=== PATIENT | female | born 1975 | race Hispanic/Latino ===

== ENCOUNTER 2017-08-09 17:56 | Emergency (ER) | payer BC ==
[2017-08-09 19:02] VITALS: BP 139/94; PULSE 93; RESP 16; TEMP 97.9; O2SAT 99
[2017-08-09] MEDS ORDERED: Sodium Chloride 0.9% 1,000 ML IV STA (20:42)
[2017-08-09] MEDS ORDERED: Iohexol 240 (50 ml) PO ONE (20:43)
--- NOTE | 2017-08-09 20:45 | ED PDOC ---
HPI: Abdomen Time Seen by Provider: 08/09/17 20:07 Chief Complaint (Nursing): Abdominal Pain Chief Complaint (Provider): abdominal pain History Per: Patient History/Exam Limitations: no limitations Onset/Duration Of Symptoms: Hrs (8) Current Symptoms Are (Timing): Still Present Location Of Pain/Discomfort: RLQ, Periumbilical Quality Of Discomfort: Sharp Last Bowel Movement: Today Additional History Per: Patient Additional Complaint(s): 42 y/o female presents with right-sided abdominal pain x 8 hours. Associated multiple episodes of nonbloody diarrhea, nonbilious vomiting. Denies fever, chest pain, shortness of breath, palpitations, urinary symptoms, recent travel, sick contacts. Past Medical History Reviewed: Historical Data, Nursing Documentation, Vital Signs Vital Signs: Last Vital Signs Temp 97.9 F 08/09/17 18:59 Pulse 93 H 08/09/17 18:59 Resp 16 08/09/17 18:59 BP 139/94 H 08/09/17 18:59 Pulse Ox 99 08/10/17 00:33 - Medical History PMH: Back Problems, Migraine - Surgical History Surgical History: Cholecystectomy, Other surgeries: gastric sleeve, hysterectomy - Family History Family History: States: Unknown Family Hx - Home Medications Home Medications: Ambulatory Orders Medication Instructions Recorded Metaxalone [Skelaxin] 800 mg PO Q8H PRN #15 tab 05/15/15 oxyCODONE/Acetaminophen [Percocet 1 ea PO Q6H PRN #12 tab 05/15/15 5/325 mg Tab] Ondansetron ODT [Zofran ODT] 8 mg PO Q8 PRN #10 odt 07/28/15 Ciprofloxacin HCl [Cipro] 500 mg PO BID #6 tablet 11/19/15 Dicyclomine [Bentyl] 20 mg PO QID PRN #10 tab 11/19/15 Ibuprofen [Motrin] 600 mg PO Q6H PRN #10 tab 01/28/16 Dicyclomine [Bentyl] 20 mg PO TID PRN #15 tab 08/10/17 Ondansetron ODT [Zofran ODT] 4 mg PO Q8 PRN #10 odt 08/10/17 - Allergies Allergies/Adverse Reactions: Allergies Allergy/AdvReac Type Severity Reaction Status Date / Time Penicillins Allergy RASH Verified 01/27/16 22:39 Review of Systems ROS Statement: Except As Marked, All Systems Reviewed And Found Negative Gastrointestinal: Positive for: Nausea, Vomiting, Abdominal Pain, Diarrhea Physical Exam - Reviewed Nursing Documentation Reviewed: Yes Vital Signs Reviewed: Yes - Physical Exam Appears: Positive for: Well, Non-toxic, No Acute Distress Head Exam: Positive for: ATRAUMATIC, NORMAL INSPECTION, NORMOCEPHALIC Skin: Positive for: Normal Color Eye Exam: Positive for: Normal appearance ENT: Positive for: Normal ENT Inspection Cardiovascular/Chest: Positive for: Regular Rate, Rhythm Respiratory: Positive for: Normal Breath Sounds Gastrointestinal/Abdominal: Positive for: Bowel Sounds, Soft, Tenderness (RLQ, suprapubic, periumbilical. Neg obturator's, neg psoas. ) Back: Positive for: Normal Inspection Extremity: Positive for: Normal ROM Neurologic/Psych: Positive for: Alert, Oriented - Laboratory Results Result Diagrams: 08/09/17 21:07 08/09/17 21:07 - ECG O2 Sat by Pulse Oximetry: 99 - Progress ED Course And Treament: labs, urine, CT abd/pelvis, IV fluids, IV zofran, IV toradol EXAM: CT Abdomen and Pelvis With Intravenous Contrast CLINICAL HISTORY: 42 years old, female; Pain and signs and symptoms; Vomiting and other: Diarrhea ; Abdominal pain; Localized; Right; Prior surgery; Surgery date: 6+ months; Surgery type: Gb removed. . Gastric sleeve. Hysterectomy; Additional info: Abd pain, vomiting, diarrhea. TECHNIQUE: Axial computed tomography images of the abdomen and pelvis with intravenous contrast. All CT scans at this facility use one or more dose reduction techniques, viz.: automated exposure control; ma/kV adjustment per patient size (including targeted exams where dose is matched to indication; i.e. head); or iterative reconstruction technique. Coronal and sagittal reformatted images were created and reviewed. CONTRAST: 95 mL of administered intravenously. COMPARISON: CT - ABD PELVIS PO IV CONTRAST 2015-11-19 20:18 FINDINGS: Lower thorax: Small hiatal hernia. Mild mural thickening vs underdistention of distal esophagus. ABDOMEN: Liver: Fatty infiltration. Gallbladder and bile ducts: Cholecystectomy. No significant ductal dilation. Pancreas: No ductal dilation. No mass. Spleen: No splenomegaly. Adrenals: No mass. Kidneys and ureters: Punctate calculus within LEFT kidney. Too small to characterize lesion within LEFT kidney. No hydronephrosis. Stomach and bowel: Postsurgical changes of stomach. Few scattered diverticula within colon. No associated inflammatory stranding. Probable underdistention of LEFT colon. No definite mural thickening. No obstruction. Appendix: Normal caliber. No inflammation. PELVIS: Bladder: Unremarkable. Reproductive: Hysterectomy. ABDOMEN and PELVIS: Intraperitoneal space: No significant fluid collection. No free air. Bones/joints: Early degenerative changes of thoracic spine. Mild degenerative changes of hip joints. No acute fracture. Soft tissues: Tiny umbilical hernia containing fat. Vasculature: Circumaortic LEFT renal vein. Minimal atherosclerotic disease of aorta. No aneurysm. Lymph nodes: No pathologically enlarged lymph nodes. IMPRESSION: 1. Diverticulosis without definite CT evidence of diverticulitis. 2. Incidental/non-acute findings are described above. On re-eval, patient resting comfortably; tolerating PO. patient educated on findings, discharged with rx Zofran, Bentyl. Advised fluids. Jess[place] diet. Follow up PMD 2-3 days. Return precautions given. Disposition - Clinical Impression Clinical Impression: Gastroenteritis - Patient ED Disposition Is Patient to be Admitted: No Counseled Patient/Family Regarding: Studies Performed, Diagnosis, Need For Followup, Rx Given - Disposition Disposition Time: 00:44 Condition: IMPROVED Prescriptions: Dicyclomine [Bentyl] 20 mg PO TID PRN #15 tab PRN Reason: Pain, Mild (1-3) Ondansetron ODT [Zofran ODT] 4 mg PO Q8 PRN #10 odt PRN Reason: Nausea/Vomiting Instructions: Gastroenteritis (ED) Forms: [email or web address] (Japanese), [facility] ED School/Work Excuse
[2017-08-09 21:17] LABS: BASO # 0.1 K/uL (0.0-0.2); BASO % 1.1 % (0.0-2.0); EOS # 0.1 K/uL (0.0-0.7); EOS % 2.7 % (0.0-4.0); HEMOGLOBIN 11.8 g/dL (12.0-16.0); LYMPH # 2.5 K/uL (1.0-4.3); LYMPH % 48.7 % (20.0-40.0); MEAN CELL VOLUME 87.7 fl (81.0-99.0); MEAN CORPUSCULAR HEMOGLOBIN 28.2 pg (27.0-31.0); MEAN CORPUSCULAR HGB CONC 32.2 g/dL (33.0-37.0); MEAN PLATELET VOLUME 8.4 fl (7.2-11.7); MONO # 0.3 K/uL (0.0-0.8); MONO % 5.8 % (0.0-10.0); NEUT # 2.2 K/uL (1.8-7.0); NEUT % 41.7 % (50.0-75.0); NRBC % 0.4 % (0.0-0.0); RBC 4.17 Mil/uL (3.80-5.20); RED CELL DISTRIBUTION WIDTH 13.9 % (11.5-14.5); WHITE BLOOD COUNT 5.2 K/uL (4.8-10.8)
[2017-08-09] MEDS ORDERED: Iohexol 240 (50 ml) ONE (21:24)
[2017-08-09 21:30] LABS: ALB/GLOB RATIO 1.2 (1.0-2.1); ALT/SGPT 39 U/L (9-52); AST/SGOT 28 U/L (14-36); BLOOD UREA NITROGEN 15 mg/dl (7-17); CALCIUM 9.6 mg/dL (8.4-10.2); GFR AFRICAN-AMERICAN > 60; GFR NON-AFRICAN AMERICAN > 60; LIPASE 81 U/L (23-300)
[2017-08-09 21:34] LABS: SQUAMOUS EPITHIAL 1 /hpf (0-5); URINE BACTERIA RARE (<OCC); URINE BILIRUBIN NEGATIVE (NEGATIVE); URINE BLOOD NEGATIVE (NEGATIVE); URINE CLARITY SLIGHTY-CLOUDY (Clear); URINE COLOR YELLOW (YELLOW); URINE GLUCOSE (UA) NEG (Normal); URINE LEUKOCYTE ESTERASE NEG Leu/uL (Negative); URINE NITRATE NEGATIVE (NEGATIVE); URINE PROTEIN NEGATIVE (NEGATIVE); URINE UROBILINOGEN 0.2-1.0 mg/dL (0.2-1.0)
[2017-08-09] MEDS ORDERED: Sodium Chloride 0.9% 50 ML IV ONE (22:41)
[2017-08-09] MEDS ORDERED: Iohexol 300 100 ML IJ ONE (22:41)
--- NOTE | 2017-08-09 23:36 | CT ---
EXAM: CT Abdomen and Pelvis With Intravenous Contrast CLINICAL HISTORY: 42 years old, female; Pain and signs and symptoms; Vomiting and other: Diarrhea; Abdominal pain; Localized; Right; Prior surgery; Surgery date: 6+ months; Surgery type: Gb removed. . Gastric sleeve. Hysterectomy; Additional info: Abd pain, vomiting, diarrhea. TECHNIQUE: Axial computed tomography images of the abdomen and pelvis with intravenous contrast. All CT scans at this facility use one or more dose reduction techniques, viz.: automated exposure control; ma/kV adjustment per patient size (including targeted exams where dose is matched to indication; i.e. head); or iterative reconstruction technique. Coronal and sagittal reformatted images were created and reviewed. CONTRAST: 95 mL of [id number] administered intravenously. COMPARISON: CT - ABD PELVIS PO IV CONTRAST 2015-11-19 20:18 FINDINGS: Lower thorax: Small hiatal hernia. Mild mural thickening vs underdistention of distal esophagus. ABDOMEN: Liver: Fatty infiltration. Gallbladder and bile ducts: Cholecystectomy. No significant ductal dilation. Pancreas: No ductal dilation. No mass. Spleen: No splenomegaly. Adrenals: No mass. Kidneys and ureters: Punctate calculus within LEFT kidney. Too small to characterize lesion within LEFT kidney. No hydronephrosis. Stomach and bowel: Postsurgical changes of stomach. Few scattered diverticula within colon. No associated inflammatory stranding. Probable underdistention of LEFT colon. No definite mural thickening. No obstruction. Appendix: Normal caliber. No inflammation. PELVIS: Bladder: Unremarkable. Reproductive: Hysterectomy. ABDOMEN and PELVIS: Intraperitoneal space: No significant fluid collection. No free air. Bones/joints: Early degenerative changes of thoracic spine. Mild degenerative changes of hip joints. No acute fracture. Soft tissues: Tiny umbilical hernia containing fat. Vasculature: Circumaortic LEFT renal vein. Minimal atherosclerotic disease of aorta. No aneurysm. Lymph nodes: No pathologically enlarged lymph nodes. IMPRESSION: 1. Diverticulosis without definite CT evidence of diverticulitis. 2. Incidental/non-acute findings are described above.
== END 2017-08-10 01:30 | disposition home or self-care (01) ==
LOC: H.ER 17:56
DX: K52.9 Noninfective gastroenteritis and colitis, unspecified (principal); Z88.0 Allergy status to penicillin; Z90.710 Acquired absence of both cervix and uterus
CPT/HCPCS: 74177; 80053; 81003; 81025; 83690; 85025; 96374; 99283; J2405; J7040; Q9966; Q9967

== ENCOUNTER 2017-09-15 12:04 | Emergency (ER) | payer BC ==
[2017-09-15 12:10] VITALS: BP 135/85; PULSE 96; RESP 18; TEMP 98; O2SAT 99; BMI 34.0
--- NOTE | 2017-09-15 12:54 | ED PDOC ---
HPI: Back Time Seen by Provider: 09/15/17 12:13 Chief Complaint (Nursing): Back Pain Chief Complaint (Provider): Back Pain History Per: Patient History/Exam Limitations: no limitations Onset/Duration Of Symptoms: Days (x2) Current Symptoms Are (Timing): Still Present Previous Symptoms: Back Pain Additional Complaint(s): 42 year old female presents to the Emergency Department complaining of left lower back pain since last night. She took Motrin around 10PM with no improvement. Patient denies any associated radiation of pain, fever, chills, hematuria, dysuria, or incontinence of urine or stool. She reports she has had similar pain on her right side in the past, was seen here 5 months ago, and diagnosed with sciatica. Patient has not followed up with a hand touch up painter. Past Medical History Reviewed: Historical Data, Nursing Documentation, Vital Signs Vital Signs: Last Vital Signs Temp 98.0 F 09/15/17 12:09 Pulse 96 H 09/15/17 12:09 Resp 18 09/15/17 12:09 BP 135/85 09/15/17 12:09 Pulse Ox 99 09/15/17 12:09 - Medical History PMH: Back Problems, Migraine - Surgical History Surgical History: Cholecystectomy, Other surgeries: Gastric sleeve, Hysterectomy - Family History Family History: States: Unknown Family Hx - Home Medications Home Medications: Ambulatory Orders Medication Instructions Recorded Metaxalone [Skelaxin] 800 mg PO Q8H PRN #15 tab 05/15/15 oxyCODONE/Acetaminophen [Percocet 1 ea PO Q6H PRN #12 tab 05/15/15 5/325 mg Tab] Ondansetron ODT [Zofran ODT] 8 mg PO Q8 PRN #10 odt 07/28/15 Ciprofloxacin HCl [Cipro] 500 mg PO BID #6 tablet 11/19/15 Dicyclomine [Bentyl] 20 mg PO QID PRN #10 tab 11/19/15 Ibuprofen [Motrin] 600 mg PO Q6H PRN #10 tab 01/28/16 Dicyclomine [Bentyl] 20 mg PO TID PRN #15 tab 08/10/17 Ondansetron ODT [Zofran ODT] 4 mg PO Q8 PRN #10 odt 08/10/17 Metaxalone [Skelaxin] 800 mg PO TID PRN #15 tablet 09/15/17 Prednisone 50 mg PO DAILY #5 tablet 09/15/17 traMADol [Ultram] 50 mg PO QID PRN #10 tab 09/15/17 - Allergies Allergies/Adverse Reactions: Allergies Allergy/AdvReac Type Severity Reaction Status Date / Time Penicillins Allergy RASH Verified 01/27/16 22:39 Review of Systems ROS Statement: Except As Marked, All Systems Reviewed And Found Negative Constitutional: Negative for: Fever, Chills Genitourinary Female: Negative for: Dysuria, Frequency, Incontinence, Hematuria Musculoskeletal: Positive for: Back Pain Physical Exam - Reviewed Nursing Documentation Reviewed: Yes Vital Signs Reviewed: Yes - Physical Exam Appears: Positive for: Non-toxic, No Acute Distress Head Exam: Positive for: ATRAUMATIC, NORMAL INSPECTION, NORMOCEPHALIC Skin: Positive for: Normal Color. Negative for: Rash Eye Exam: Positive for: Normal appearance Back: Positive for: Muscle Spasm (Palpable spasm in left lower back), Other ( Left paralumbar tenderness). Negative for: L CVA Tenderness, R CVA Tenderness, Vertebral Tenderness Neurologic/Psych: Positive for: Alert, Oriented - Laboratory Results Urine POC: Negative Urine dip results: Negative for: Leukocyte Esterase, Blood, Nitrate, Ketones, Glucose, Bilirubin, Protein - ECG O2 Sat by Pulse Oximetry: 99 (RA) Pulse Ox Interpretation: Normal - Other Rad L/S Spine x-ray X-Ray: Interpreted by Me, Viewed By Me X-Ray Interpretation: no fx, no dis Medical Decision Making Medical Decision Making: Initial Impression: 42 y/o with acute on chronic back pain Time: 12:49 Initial Plan: * Urine preg * Urine dip * Flexeril 10 mg PO * Toradol 30 mg IM * Tramadol 50 mg PO * X-ray LS spine Patient reports mild improvement s/p meds given. Will d/c with rx tramadol, prednisone and skelaxin. Patient was referred to pain management for follow up. Scribe Attestation: Documented by Josselin Cooney, acting as a scribe for Nanette Pfeiffer PA-C Provider Scribe Attestation: All medical record entries made by the Scribe were at my direction and personally dictated by me. I have reviewed the chart and agree that the record accurately reflects my personal performance of the history, physical exam, medical decision making, and the department course for this patient. I have also personally directed, reviewed, and agree with the discharge instructions and disposition. Disposition - Clinical Impression Clinical Impression: Acute exacerbation of chronic low back pain - Patient ED Disposition Is Patient to be Admitted: No Counseled Patient/Family Regarding: Studies Performed, Diagnosis, Need For Followup, Rx Given - Disposition Referrals: Phill De La Cruz MD [Medical Doctor] - Mary Antonio MD [Staff Provider] - Disposition: Routine/Home Disposition Time: 13:44 Condition: STABLE Additional Instructions: Take prescription meds as directed. Rest and avoid heavy lifting. Follow up with hand touch up painter or primary doctor for further evaluation. Prescriptions: Metaxalone [Skelaxin] 800 mg PO TID PRN #15 tablet PRN Reason: Muscle Pain Prednisone 50 mg PO DAILY #5 tablet traMADol [Ultram] 50 mg PO QID PRN #10 tab PRN Reason: Pain, Moderate (4-7) Instructions: Low Back Pain (DC), Back Exercises, Lumbar Muscle Strain (DC) Forms: [employer] (Malaysian), [facility] ED School/Work Excuse
--- NOTE | 2017-09-15 13:43 | RAD ---
PROCEDURE: Radiographs of the Lumbar Spine. HISTORY: pain COMPARISON: No prior. FINDINGS: BONES: Normal alignment. No listhesis. No fracture. DISC SPACES: Unremarkable. L5-S1 minimal disc space narrow OTHER FINDINGS: Epigastric and right upper postsurgical changes Stool retention. A rounded 4 cm right upper quadrant intermediate density with oval 5 x 9 mm more dense opacity projecting over is noted. Clinical correlation needed to note this is intrinsic or extrinsic to the patient. IMPRESSION: No lumbar fracture or lytic lesion. Stool retention. Postsurgical changes Other changes as above
== END 2017-09-15 13:58 | disposition home or self-care (01) ==
LOC: H.ER 12:04
DX: M54.5 Low back pain (principal); G89.29 Other chronic pain; Z88.0 Allergy status to penicillin
CPT/HCPCS: 72100; 81025; 96372; 99283; J1885